=== PATIENT | male | born 1945 | race Caucasian/White ===

== ENCOUNTER 2018-05-20 09:10 | Emergency (ER) | payer OTHER ==
[~2018-05-20] VITALS: Ht 176.5 cm; Wt 80.0 kg
[~2018-05-20 09:10] MED LIST: AUGMENTIN875TAB OR; CIPROFLOXACN500 MG PO; FINASTERIDE5 MG PO; PREDNISONE5 MG PO; SINGULAIR PO; SYMBICORT1 AE1; ULTRAM50 MG OR
[2018-05-20] MEDS ORDERED: MEDDOSEPAK PO (10:01)
[2018-05-20] MEDS ORDERED: ZITHROMAX250 MG PO (10:01)
[2018-05-20] MEDS ORDERED: TESSALON PER100 MG PO (10:01)
[2018-05-20 10:05] VITALS: BP 162/80
== END 2018-05-20 10:12 | disposition home or self-care (01) | DRG 153 ==
LOC: ED 09:10
DX: J06.9 Acute upper respiratory infection, unspecified (principal); R05 Cough